=== PATIENT | male | born 1995 | race Caucasian/White ===

== ENCOUNTER 2018-03-08 04:26 | Emergency (ER) | payer OTHER ==
[~2018-03-08] VITALS: Ht 177.8 cm; Wt 90.7 kg
[2018-03-08 04:39] VITALS: BP 122/69
[2018-03-08] MEDS ORDERED: IBUPROFEN 800800 M1 PO (05:13)
== END 2018-03-08 05:47 | disposition home or self-care (01) ==
LOC: ER 04:26
DX: J02.0 Streptococcal pharyngitis (principal); F17.210 Nicotine dependence, cigarettes, uncomplicated